=== PATIENT | female | born 1990 | race Caucasian/White ===

== ENCOUNTER 2021-02-08 13:30 | Emergency (ER) | payer OTHER ==
[2021-02-08] MEDS ORDERED: Zofran 4 MG/2 ML VIAL ONE (13:48)
[2021-02-08] MEDS ORDERED: Sodium Chloride 0.9% 1000 ML 1,000 ML ONE (13:49)
[2021-02-08] MEDS ORDERED: TORAdol 30 mg Injection ONE (13:49)
[2021-02-08] MEDS ORDERED: Hydromorphone 1 mg/ml Injection ONE (13:49)
[2021-02-08] MEDS ORDERED: TORAdol 30 mg Injection IV ONE (13:56)
[2021-02-08] MEDS ORDERED: Sodium Chloride 0.9% 1000 ML 1,000 ML IV STA (13:56)
[2021-02-08] MEDS ORDERED: Zofran 4 MG/2 ML VIAL IV ONE (13:56)
[2021-02-08] MEDS ORDERED: Hydromorphone 1 mg/ml Injection IV ONE (14:01)
[2021-02-08 14:14] LABS: Absolute Neutrophil Ct (ANC) 9.34 (1.4-6.9); BASOPHIL % 0.1 % (0.0-0.4); Basophil (Absolute #) 0.01 (0-0.4); Eosinophil % 0.1 % (0.00-5.0); Eosinophil (Absolute #) 0.01 (0-0.5); Hematocrit 37.1 % (35-47); Hemoglobin 12.2 gm/dl (12.0-16.0); Lymphocyte (Absolute #) 0.57 (1.0-4.6); Lymphocytes % 5.5 % (24.0-44.0); Mean Cell Volume 85.1 fl (78-100); Mean Corpuscular Hgb Concent. 32.9 g/dl (32-36); Mean Platelet Volume 9.6 fl (7.5-11.0); Monocyte (Absolute #) 0.35 (0.0-1.3); Monocytes % 3.4 % (0.0-12.0); Neutrophil % 90.9 % (36.0-66.0); Platelet Count 306 K/mm3 (150-450); Red Blood Count 4.36 M/mm3 (4.1-5.4); Red Cell Distribution Width 15.9 % (11.5-14.0); White Blood Count 10.3 K/mm3 (4.0-10.5)
--- NOTE | 2021-02-08 14:19 | ERPHSYRPT ---
- History of Present Illness Time Seen by Provider: 02/08/21 13:55 Historian: patient Patient Subjective Stated Complaint: Flank pain Triage Nursing Assessment: Patient ambulated back to ED and transferred self to bed. Patient A+O X3. Patient's skin pink,warm and dry. Patient complains of right sided flank and lower right sided abdominal pain sharp pain 9/10 that started at 0900. Patient complains of N/V. Abdomen soft and round with BS X 4. Physician History: Patient is a 30-year-old white female who presents with a complaint of right flank pain which started at 5 AM she has had nausea and vomiting pain radiates into the flank and into the right lower quadrant and the vaginal area. No history of previous stones. Allergies/Adverse Reactions: No Known Drug Allergies Allergy (Unverified 02/08/21 13:39) Hx Influenza Vaccination/Date Given: No Hx Pneumococcal Vaccination/Date Given: No Immunizations Up to Date: Yes Travel Risk - International Travel Have you traveled outside of the country in past 3 weeks: No - Coronavirus Screening Are you exhibiting any of the following symptoms?: No Close contact with a COVID-19 positive Pt in past 14-21 Days: No - Vaccine Status Have you recieved a Covid-19 vaccination: No - Review of Systems Constitutional: No Fever, No Chills Eyes: No Symptoms Ears, Nose, & Throat: No Symptoms Respiratory: No Cough, No Dyspnea Cardiac: No Chest Pain, No Edema, No Syncope Abdominal/Gastrointestinal: No Abdominal Pain, No Nausea, No Vomiting, No Diarrhea Genitourinary Symptoms: No Dysuria Musculoskeletal: No Back Pain, No Neck Pain Skin: No Rash Neurological: No Dizziness, No Focal Weakness, No Sensory Changes Psychological: No Symptoms Endocrine: No Symptoms All Other Systems: Reviewed and Negative - Past Medical History Pertinent Past Medical History: No Neurological History: No Pertinent History ENT History: No Pertinent History Cardiac History: No Pertinent History Respiratory History: No Pertinent History Endocrine Medical History: No Pertinent History Musculoskeletal History: No Pertinent History GI Medical History: No Pertinent History History: No Pertinent History Psycho-Social History: No Pertinent History Female Reproductive Disorders: No Pertinent History - Past Surgical History Past Surgical History: No Neuro Surgical History: No Pertinent History Cardiac: No Pertinent History Respiratory: No Pertinent History Gastrointestinal: Other Genitourinary: No Pertinent History Musculoskeletal: No Pertinent History Female Surgical History: No Pertinent History Other Surgical History: gastric sleeve September 2020 - Social History Smoking Status: Never smoker Exposure to second hand smoke: No Drug Use: none Patient Lives Alone: No - Female History Hx Last Menstrual Period: 1 month ago Hx Now: No - Nursing Vital Signs Nursing Vital Signs: Initial Vital Signs Temperature 97.6 F 02/08/21 13:41 Pulse Rate 55 L 02/08/21 13:41 Respiratory Rate 18 02/08/21 13:41 Blood Pressure 151/97 02/08/21 13:41 O2 Sat by Pulse Oximetry 100 02/08/21 13:41 Pain Scale Pain Intensity 0 - Physical Exam General Appearance: mild distress, alert Eye Exam: PERRL/EOMI, eyes nml inspection Ears, Nose, Throat Exam: normal ENT inspection, pharynx normal, moist mucous membranes Neck Exam: normal inspection, non-tender, supple, full range of motion Respiratory Exam: normal breath sounds, lungs clear, No respiratory distress Cardiovascular Exam: regular rate/rhythm, normal heart sounds Gastrointestinal/Abdomen Exam: soft, No tenderness, No mass Back Exam: normal inspection, normal range of motion, CVA tenderness (Right), No vertebral tenderness Extremity Exam: normal inspection, normal range of motion, pelvis stable Neurologic Exam: alert, oriented x 3, cooperative, normal mood/affect, nml cerebellar function, sensation nml, No motor deficits Skin Exam: normal color, warm, dry SpO2: 100 - Course Nursing assessment & vital signs reviewed: Yes - CT Exams Abdomen/Pelvis CT Interpretation: Other (CT interpretation included a 3 to 4 mm right UVJ calculus project producing obstructive uropathy as detailed) Ordered Tests: Active Orders 24 hr Category Date Time Status ABDOMEN AND PELVIS W/0 CONTRAS [CT] Stat Exams 02/08/21 13:55 Completed CBC W DIFF Stat Lab 02/08/21 14:07 Completed CMP Stat Lab 02/08/21 14:07 Completed CULTURE,URINE Stat Lab 02/08/21 13:55 Received UA W/RFX UR CULTURE Stat Lab 02/08/21 13:55 Completed Medication Summary Discontinued Medications Generic Name Dose Route Start Last Admin Trade Name Freq PRN Reason Stop Dose Admin Hydromorphone HCl Confirm 02/08/21 13:49 Hydromorphone 1 Mg/Ml Injection Administered 02/08/21 13:50 Dose 1 mg .ROUTE .STK-MED ONE Hydromorphone HCl 1 mg 02/08/21 14:01 02/08/21 14:02 Hydromorphone 1 Mg/Ml Injection IV 02/08/21 14:02 1 mg STAT ONE Administration Sodium Chloride Confirm 02/08/21 13:49 Sodium Chloride 0.9% 1000 Ml Administered 02/08/21 13:50 Dose 1,000 mls @ ud .ROUTE .STK-MED ONE Sodium Chloride 1,000 mls @ 999 mls/hr 02/08/21 13:56 02/08/21 13:58 Sodium Chloride 0.9% 1000 Ml IV 02/08/21 14:56 999 mls/hr .Q1H1M STA Administration Ketorolac Tromethamine Confirm 02/08/21 13:49 Toradol 30 Mg Injection Administered 02/08/21 13:50 Dose 30 mg .ROUTE .STK-MED ONE Ketorolac Tromethamine 30 mg 02/08/21 13:56 02/08/21 13:57 Toradol 30 Mg Injection IV 02/08/21 13:57 30 mg STAT ONE Administration Ondansetron HCl Confirm 02/08/21 13:48 Zofran 4 Mg/2 Ml Vial Administered 02/08/21 13:49 Dose 4 mg .ROUTE .STK-MED ONE Ondansetron HCl 4 mg 02/08/21 13:56 02/08/21 13:57 Zofran 4 Mg/2 Ml Vial IV 02/08/21 13:57 4 mg STAT ONE Administration Lab/Rad Data: Laboratory Result Diagrams 02/08/21 14:07 02/08/21 14:07 Laboratory Results 02/08/21 02/08/21 02/08/21 Range/Units 14:07 14:07 13:55 WBC 10.3 (4.0-10.5) K/mm3 RBC 4.36 (4.1-5.4) M/mm3 Hgb 12.2 (12.0-16.0) gm/dl Hct 37.1 (35-47) % MCV 85.1 (78-100) fl MCH 28.0 (26-32) pg MCHC 32.9 (32-36) g/dl RDW 15.9 H (11.5-14.0) % Plt Count 306 (150-450) K/mm3 MPV 9.6 (7.5-11.0) fl Gran % 90.9 H (36.0-66.0) % Eos # (Auto) 0.01 (0-0.5) Absolute Lymphs (auto) 0.57 L (1.0-4.6) Absolute Monos (auto) 0.35 (0.0-1.3) Lymphocytes % 5.5 L (24.0-44.0) % Monocytes % 3.4 (0.0-12.0) % Eosinophils % 0.1 (0.00-5.0) % Basophils % 0.1 (0.0-0.4) % Absolute Granulocytes 9.34 H (1.4-6.9) Basophils # 0.01 (0-0.4) Sodium 137 (137-145) mmol/L Potassium 4.0 (3.5-5.1) mmol/L Chloride 101 (98-107) mmol/L Carbon Dioxide 22 (22-30) mmol/L Anion Gap 17.7 H (5-15) MEQ/L BUN 8 (7-17) mg/dL Creatinine 0.71 (0.52-1.04) mg/dL Estimated GFR > 60.0 ML/MIN Glucose 107 H (74-106) mg/dL Calcium 9.3 (8.4-10.2) mg/dL Total Bilirubin 1.00 (0.2-1.3) mg/dL AST 79 H (14-36) U/L ALT 58 H (0-35) U/L Alkaline Phosphatase 107 (38-126) U/L Serum Total Protein 7.2 (6.3-8.2) g/dL Albumin 3.9 (3.5-5.0) g/dL Urine Color MIGUEL ANGEL (YELLOW) Urine Appearance CLOUDY (CLEAR) Urine pH 5.0 (5-6) Ur Specific [place] 1.040 (1.005-1.025) Urine Protein 30 (Negative) Urine Ketones SMALL (NEGATIVE) Urine Blood SMALL (0-5) [place] Urine Nitrite POSITIVE (NEGATIVE) Urine Bilirubin NEGATIVE (NEGATIVE) Urine Urobilinogen 4 (0-1) mg/dL Ur Leukocyte Esterase NEGATIVE (NEGATIVE) Urine WBC (Auto) 3-5 (0-5) /HPF Urine RBC (Auto) 6-10 (0-2) /HPF U Epithel Cells (Auto) MANY (FEW) /HPF Urine Bacteria (Auto) RARE (NEGATIVE) /HPF Urine Mucus (Auto) MANY (NEGATIVE) /HPF Urine Culture Reflexed YES (NO) Urine Glucose NEGATIVE (NEGATIVE) mg/dL - Progress Progress: improved - Departure Departure Disposition: Home Clinical Impression: Right ureteral calculus Condition: Stable Critical Care Time: No Referrals: MICHELINE AGUIRRE [Primary Care Provider] - Instructions: Kidney Stones (DC) Prescriptions: Tamsulosin HCl 0.4 mg [Flomax 0.4 MG] 0.4 mg PO DAILY 5 Days #5 cap Oxycodone HCl/Acetaminophen [Percocet 10-325 mg Tablet] 1 each PO Q6H 3 Days #12 tablet MDD 4 Metoclopramide HCl 10 mg [Reglan 10 MG] 10 mg PO Q6H 5 Days #10 tablet
[2021-02-08 14:23] LABS: ALBUMIN 3.9 g/dL (3.5-5.0); ALKALINE PHOSPHATASE 107 U/L (38-126); ANION GAP 17.7 MEQ/L (5-15); BLOOD UREA NITROGEN 8 mg/dL (7-17); CHLORIDE 101 mmol/L (98-107); Calcium 9.3 mg/dL (8.4-10.2); Carbon Dioxide 22 mmol/L (22-30); Creatinine 1 0.71 mg/dL (0.52-1.04); EST GLOMERULAR FILTRATION RATE > 60.0 ML/MIN; Glucose 107 mg/dL (74-106); SGOT/AST 79 U/L (14-36); SGPT/ALT 58 U/L (0-35); SODIUM 137 mmol/L (137-145); Total Protein 7.2 g/dL (6.3-8.2)
[2021-02-08 14:28] LABS: Appearance CLOUDY (CLEAR); Bacteria RARE /HPF (NEGATIVE); Bilirubin NEGATIVE (NEGATIVE); Blood SMALL Ery/ul (0-5); Epithelial Cells MANY /HPF (FEW); Glucose NEGATIVE (NEGATIVE); Ketones SMALL (NEGATIVE); Leukocyte Esterase NEGATIVE (NEGATIVE); Mucus MANY /HPF (NEGATIVE); Nitrite POSITIVE (NEGATIVE); Protein,Urine Dip 30 (Negative); Urobilinogen 4 mg/dL (0-1)
--- NOTE | 2021-02-08 14:34 | XRAY ---
Indication: Right abdomen/pelvic pain. Multiple contiguous axial images obtained through the abdomen and pelvis without contrast. Comparison: None Lung bases demonstrates tiny right costophrenic angle calcified granuloma. No infiltrate or effusion. Heart is not enlarged. There has been bariatric surgery. Noncontrasted stomach and bowel loops appear nonobstructed. Normal appendix. Tiny cul-de-sac fluid presumed physiologic from rupture/leaking cyst. No free air. Right kidney demonstrates moderate hydronephrosis and right ureter is distended up to 1.3 cm with a 3-4 mm UVJ calculus. Remaining liver, gallbladder, pancreas, spleen, adrenal glands, left kidney, left ureter, bladder, uterus, and aorta are unremarkable for noncontrast exam. Osseous structures intact. Impression: 1. 3-4 mm right UVJ calculus producing obstructive uropathy as detailed. 2. Incidental tiny cul-de-sac physiologic free fluid and tiny right costophrenic angle calcified granuloma.
[2021-02-08] MEDS ORDERED: OXYCODONE-ACETAMINOPHEN 10-325 ONE (15:47)
[2021-02-08] MEDS ORDERED: OXYCODONE-ACETAMINOPHEN 10-325 PO STA (15:51)
[2021-02-08 16:04] VITALS: BP 129/78; PULSE 86; O2SAT 97
[2021-02-08 16:57] LABS: Slide Review 1 YES
== END 2021-02-08 16:05 | disposition home or self-care (01) ==
LOC: ED 13:30
DX: N20.1 Calculus of ureter (principal); R10.9 Unspecified abdominal pain; R11.2 Nausea with vomiting, unspecified; R10.31 Right lower quadrant pain
CPT/HCPCS: 36000; 36415; 74176; 80053; 81001; 85025; 87086; 96360; 96374; 96375; 99284; J1170; J1885; J2405; A9270-GY